=== PATIENT | female | born 1965 ===

== ENCOUNTER 2016-12-15 12:53 | Emergency (ER) | payer MEDICAID ==
[2016-12-15 12:59] VITALS: TEMP 99; O2SAT 98
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
[2016-12-15 15:34] VITALS: BP 148/83; PULSE 88; RESP 16
--- NOTE | 2016-12-16 07:37 | CARD ---
APPROVED REPORT EKG Measurement Heart [id number] <Conclusion> Normal sinus rhythm Possible Left atrial enlargement Left axis deviation Abnormal ECG
== END 2016-12-15 15:28 | disposition home or self-care (01) ==
LOC: H.ER 12:53
DX: F43.20 Adjustment disorder, unspecified (principal); E11.9 Type 2 diabetes mellitus without complications; E78.00 Pure hypercholesterolemia, unspecified; I10 Essential (primary) hypertension

== ENCOUNTER 2017-06-16 20:00 | Emergency (ER) | payer MEDICAID ==
[2017-06-16 20:22] VITALS: O2SAT 98
[2017-06-16 21:39] LABS: BASO # 0.1 K/uL (0.0-0.2); BASO % 1.2 % (0.0-2.0); EOS # 0.4 K/uL (0.0-0.7); EOS % 3.6 % (0.0-4.0); LYMPH # 2.5 K/uL (1.0-4.3); LYMPH % 22.9 % (20.0-40.0); MEAN CELL VOLUME 89.6 fl (81.0-99.0); MEAN CORPUSCULAR HGB CONC 33.5 g/dL (33.0-37.0); MEAN PLATELET VOLUME 9.2 fl (7.2-11.7); MONO % 8.7 % (0.0-10.0); NEUT % 63.6 % (50.0-75.0); NRBC % 0.1 % (0.0-0.0); RBC 4.33 Mil/uL (3.80-5.20); RED CELL DISTRIBUTION WIDTH 13.1 % (11.5-14.5); WHITE BLOOD COUNT 10.9 K/uL (4.8-10.8)
[2017-06-16 21:55] LABS: PARTIAL THROMBOPLASTIN TIME 30.5 Seconds (25.6-37.1); PROTHROMBIN TIME 10.6 Seconds (9.8-13.1)
[2017-06-16 22:03] LABS: BLOOD UREA NITROGEN 18 mg/dl (7-17); CALCIUM 10.2 mg/dL (8.4-10.2); GFR AFRICAN-AMERICAN > 60; GFR NON-AFRICAN AMERICAN > 60
--- NOTE | 2017-06-16 23:36 | RAD ---
EXAM: XR Left Shoulder Complete, 2 or More Views EXAM DATE/TIME: 06/16/2017 9:20 PM CLINICAL HISTORY: 52 years old, female; Signs and symptoms; Other: Pain; Additional info: Shoulder pain w/ movement TECHNIQUE: Two or more views of the left shoulder. COMPARISON: No relevant prior studies available. FINDINGS: There is a curvilinear calcific density along the superior lateral aspect of the left humeral head likely representing tendinitis secondary to calcium deposition along the rotator cuff / supraspinatus tendon. There increased density between the humeral head and acromioclavicular joint possible effusion. No fractures. No osseous lesions. IMPRESSION: Findings supportive of calcific tendinitis.
--- NOTE | 2017-06-16 23:38 | ED PDOC ---
Upper Extremity Pain/Injury Time Seen by Provider: 06/16/17 20:59 Chief Complaint (Nursing): Chest Pain Chief Complaint (Provider): Left Shoulder Pain History Per: Patient History/Exam Limitations: no limitations Onset/Duration Of Symptoms: Days (for a few days), Worse Since (worse today) Current Symptoms Are (Timing): Still Present Additional Complaint(s): 52 year old female presents to ED with complaints of left shoulder pain x few days and has a past medical history of DM and HTN. Notes that she has experienced this pain before but notes that it worsened today. Confirms that she normally takes a muscle relaxant and Naprozen but notes neither provided relief. (+) pain radiation to chest and back. (-) SOB. PCP: Shaik Burroughs Past Medical History Reviewed: Historical Data, Nursing Documentation, Vital Signs Vital Signs: Last Vital Signs Temp 98.8 F 06/16/17 20:19 Pulse 103 H 06/16/17 20:19 Resp 17 06/16/17 20:19 BP 139/68 06/16/17 20:19 Pulse Ox 98 06/16/17 20:19 - Medical History PMH: Diabetes (Type II), HTN, Hypercholesterolemia - Surgical History Surgical History: Appendectomy, - Family History Family History: States: Unknown Family Hx - Living Arrangements Living Arrangements: With Family - Social History Drugs: Denies - Home Medications Home Medications: Ambulatory Orders Medication Instructions Recorded Cyclobenzaprine [Cyclobenzaprine 10 mg PO BID PRN #10 tab 03/17/15 HCl] Cyclobenzaprine [Cyclobenzaprine 10 mg PO BID #15 tab 06/17/17 HCl] Ketorolac Tromethamine [Toradol] 10 mg PO BID #30 tab 06/17/17 Lidocaine 1 each TP DAILY #10 adh..patch 06/17/17 - Allergies Allergies/Adverse Reactions: Allergies Allergy/AdvReac Type Severity Reaction Status Date / Time No Known Allergies Allergy Verified 06/16/17 20:22 Review of Systems ROS Statement: Except As Marked, All Systems Reviewed And Found Negative Cardiovascular: Positive for: Chest Pain (pain radiates to chest) Respiratory: Negative for: Shortness of Breath Musculoskeletal: Positive for: Shoulder Pain (left), Back Pain (pain radiates to back) Physical Exam - Reviewed Nursing Documentation Reviewed: Yes Vital Signs Reviewed: Yes - Physical Exam Appears: Positive for: Non-toxic, No Acute Distress Skin: Positive for: Normal Color, Warm, Dry Eye Exam: Positive for: Normal appearance Neck: Positive for: Normal, Painless ROM, Supple Cardiovascular/Chest: Positive for: Regular Rate, Rhythm. Negative for: Murmur Respiratory: Positive for: Normal Breath Sounds. Negative for: Respiratory Distress Gastrointestinal/Abdominal: Positive for: Normal Exam, Soft. Negative for: Tenderness Extremity: Positive for: Tenderness (TTP of left shoulder), Other (distally neurovascularly intact). Negative for: Normal ROM (limited ROM of left shoulder secondary to pain) Neurologic/Psych: Positive for: Alert, Oriented. Negative for: Motor/Sensory Deficits - Laboratory Results Result Diagrams: 06/16/17 21:24 06/16/17 21:24 - ECG O2 Sat by Pulse Oximetry: 98 (RA) Pulse Ox Interpretation: Normal Medical Decision Making Medical Decision Makin Initial impression arthritic changes v nerve impingement syndrome Initial plan: * EKG * Labs * Trop I * PTT/PT * CXR * Flexeril 10mg PO * Toradol 30mg IVP * XR SHOULDER LEFT * Re-eval 2309 * Ultram 50mg PO * Re-eval 2335 XR FINDINGS There is a curvilinear calcific density along the superior lateral aspect of the left humeral head likely representing tendinitis secondary to calcium deposition along the rotator cuff / supraspinatus tendon. There increased density between the humeral head and acromioclavicular joint possible effusion. No fractures. No osseous lesions. IMPRESSION: Findings supportive of calcific tendinitis. 2355 * Maalox Plus 30mL PO * Pepcid 20mg PO * Re-eval 0043 Upon re-evaluation patient notes improvement in symptoms and is stable for discharge home. Condition: improved. Scribe Attestation: Documented by Candace Eisenberg acting as a scribe for Jourdan Rios MD. Scribe Attestation: All medical record entries made by the Scribe were at my direction and personally dictated by me. I have reviewed the chart and agree that the record accurately reflects my personal performance of the history, physical exam, medical decision making, and the department course for this patient. I have also personally directed, reviewed, and agree with the discharge instructions and disposition. Disposition - Clinical Impression Clinical Impression: Calcific tendinitis - Disposition Referrals: Shaik Burroughs MD [Primary Care Provider] - Kinjal Farr MD [Staff Provider] - Disposition: Routine/Home Disposition Time: 00:43 Condition: STABLE Prescriptions: Cyclobenzaprine [Cyclobenzaprine HCl] 10 mg PO BID #15 tab Ketorolac Tromethamine [Toradol] 10 mg PO BID #30 tab Lidocaine 1 each TP DAILY #10 adh..patch Instructions: Calcific Tendinitis (ED) Forms: [employer] (Italian) Print Language: AMHARIC
[2017-06-16] MEDS ORDERED: Alum-Mag Hydrox-Simethicone Susp (30 mL) PO ONE (23:54)
[2017-06-16] MEDS ORDERED: Alum-Mag Hydrox-Simethicone Susp (30 mL) ONE (23:56)
[2017-06-17 05:56] VITALS: BP 122/78; PULSE 86; RESP 16; TEMP 98.9
--- NOTE | 2017-06-17 10:10 | RAD ---
PROCEDURE: CHEST RADIOGRAPH, 1 VIEW HISTORY: hx of breast CA, CP COMPARISON: Chest radiograph dated 05/29/2008 FINDINGS: LUNGS: Clear. PLEURA: No pneumothorax or pleural fluid seen. CARDIOVASCULAR: Normal. OSSEOUS STRUCTURES: Unchanged. VISUALIZED UPPER ABDOMEN: Normal. OTHER FINDINGS: None. IMPRESSION: No active disease.
--- NOTE | 2017-06-17 11:33 | CARD ---
APPROVED REPORT EKG Measurement Heart [id number] <Conclusion> Sinus tachycardia Left axis deviation Inferior infarct, age undetermined Abnormal ECG
== END 2017-06-17 01:05 | disposition home or self-care (01) ==
LOC: H.ER 20:00
DX: M75.30 Calcific tendinitis of unspecified shoulder (principal); E11.9 Type 2 diabetes mellitus without complications; E78.00 Pure hypercholesterolemia, unspecified; I10 Essential (primary) hypertension; Z85.3 Personal history of malignant neoplasm of breast; R07.89 Other chest pain
CPT/HCPCS: 71045; 73030; 80048; 84484; 85025; 85610; 85730; 93005; 96374; 99283; J1885

== ENCOUNTER 2018-08-09 13:22 | Emergency (ER) | payer MEDICAID ==
[2018-08-09 13:37] VITALS: RESP 18
--- NOTE | 2018-08-09 14:36 | ED PDOC ---
HPI: General Adult Time Seen by Provider: 08/09/18 13:38 Chief Complaint (Nursing): Upper Extremity Problem/Injury Chief Complaint (Provider): Upper Extremity Problem/Injury History Per: Patient, Integration Consultant (Samra Strickland # [id number]) History/Exam Limitations: no limitations Onset/Duration Of Symptoms: Days (x 2 months), Worse Since (x5 days) Current Symptoms Are (Timing): Still Present Additional Complaint(s): Patient is a 53 y/o female with no a PMHx of diabetes, HTN, and hypercholesterolemia who presents to the ED for evaluation of constant right- sided body pain. Patient states the pain first began on her right hip two months ago. For the past five days her pain has worsened and extended to her neck, right shoulder, the right side of her back, and down her right leg pain. Patient claims her pain is exacerbated by moving and walking. Patient was prescribed Flexeril by her PCP two months ago which she took the first time last night with mild relief. She also notes her PMD prescribed her Meloxicam which she hasnt taken. She has also been taking medication she bought from [place] with minimal relief. Patient reports the only activity she does is cleaning her house, which involves repetitive movements of the right arm. She denies fever, chill, urinary or bowel incontinence, numbness or tingling, hematuria, saddle anesthesia, h/o malignancy or IVDA PCP: Dr. Shaik Burroughs Past Medical History Reviewed: Historical Data, Nursing Documentation, Vital Signs Vital Signs: Last Vital Signs Temp 98.6 F 08/09/18 13:34 Pulse 87 08/09/18 13:34 Resp 18 08/09/18 13:34 BP 143/70 08/09/18 13:34 Pulse Ox 98 08/09/18 13:34 - Medical History PMH: Diabetes (Type II), HTN, Hypercholesterolemia - Surgical History Surgical History: Appendectomy, - Family History Family History: States: Unknown Family Hx - Home Medications Home Medications: Ambulatory Orders Medication Instructions Recorded Cyclobenzaprine [Cyclobenzaprine 10 mg PO BID PRN #10 tab 03/17/15 HCl] Cyclobenzaprine [Cyclobenzaprine 10 mg PO BID #15 tab 06/17/17 HCl] Ketorolac Tromethamine [Toradol] 10 mg PO BID #30 tab 06/17/17 Lidocaine 1 each TP DAILY #10 adh..patch 06/17/17 traMADol [Ultram] 50 mg PO TID PRN #12 tab 08/09/18 - Allergies Allergies/Adverse Reactions: Allergies Allergy/AdvReac Type Severity Reaction Status Date / Time No Known Allergies Allergy Verified 06/16/17 20:22 Review of Systems ROS Statement: Except As Marked, All Systems Reviewed And Found Negative Constitutional: Negative for: Fever, Chills Genitourinary Female: Negative for: Dysuria, Frequency, Incontinence, Hematuria Musculoskeletal: Positive for: Neck Pain, Shoulder Pain (right), Back Pain (right), Leg Pain (right), Other (right hip pain) Neurological: Positive for: Numbness (right leg) Physical Exam - Reviewed Nursing Documentation Reviewed: Yes Vital Signs Reviewed: Yes - Physical Exam Comments: GENERAL APPEARANCE: Patient is awake, alert, oriented x 3, in mild obvious discomfort, obese SKIN: Warm, dry; (-) cyanosis. CHEST AND RESPIRATORY: (-) chest wall tenderness. Lungs: (-) rales, (-) rhonchi, (-) wheezes; breath sounds equal bilaterally. HEART AND CARDIOVASCULAR: Regular rate and rhythm. (-) irregularity; (-) murmur, (-) gallop. LUNGS: Clear to auscultation bilaterally. NECK: C6-C7 mild midline tenderness and moderate right paraspinal tenderness int o right trapezius muscle, (+)FROM though movement makes it worse (- )lymphadenopathy (-) crepitus (-) step off (-) menigismus BACK: no midline tenderness, (+) FROM, Mild right gluteus yohan tenderness (+) R straight leg raise EXTREMITY: pulses +2, capillary refill <2sec, NVI x4, RUE: Diffuse tenderness to right shoulder; Pain on flexion and abduction of right shoulder. no swelling or deformity RLE: (+) mild tenderness to lateral and posterior hip (+) FROM, no swelling or deformities, (-)saddle anesthesia NEURO AND PSYCH: Mental status as above. pcb design engineer 2-12 intact, normal steady gait, strength 5/5 x4, - ECG O2 Sat by Pulse Oximetry: 98 (RA) Pulse Ox Interpretation: Normal Medical Decision Making Medical Decision Making: Time: 1357 Plan: Cervical Spine 4 Views [Rad] Decadron 10 mg IM Toradol 30 mg IM Valium 5 mg PO HIP Min 4V w/ Pelvis RT [Rad] Shoulder Right [Rad] Time: 1517 Cervical Spine FINDINGS: BONES: Cervical spine straightening noted.. No fracture. Dens Intact. Anterior spondylosis most notable cc 4. Anterior intervertebral disc margin ca lcification ossification C6-7 level. DISC SPACES: Fairly well maintained. SOFT TISSUES: Normal. No prevertebral soft tissue swelling. OTHER FINDINGS: Diffuse apophyseal joint hypertrophic arthrosis from C3-4 through including C6- 7. IMPRESSION: No fracture or subluxation. Cervical spine straightening compatible with muscle spasm and/or positioning. Diffuse apophyseal joint hypertrophic arthrosis. Cervical spondylosis. Time: 1521 Right Shoulder FINDINGS: BONES: No fracture Apparent benign bone island bordering the tuberosities. JOINTS: . Glenohumeral and acromioclavicular trace arthrosis SOFT TISSUES: Normal. OTHER FINDINGS: None. IMPRESSION: No fracture or lytic lesion. Trace right shoulder arthrosis. Other findings as above. Time: 1600 Hip FINDINGS: There are no osseous abnormalities to suggest fracture. The pelvic ring is intact. Preserved femoral-acetabular relationship. Negative study for protrusio, subluxation or dislocation. Degenerative changes: Mild and symmetrical. IMPRESSION: No significant or acute findings to account for/ related to the clinical presentation. Time: 1620 Samra Strickland # [id number] Patient informed that she has arthritis in her neck, shoulder, and hip as well as muscle spasms in her neck. Patient advised to no longer take Meloxicam and the other medication she [place] been [place] from [place]. Patient will not be given Naproxen because she states it triggers her gastritis. Patient will be given a new prescription for Tramadol which she was last prescribed on 02/02/2018. Patient instructed to alternate between Flexeril and Tramadol for relief of symptoms. Patient told to followup with an orthopedist. [facility] Rx search shows only tramadol Rx 02/02/2018 for the last year in [place], [place] Discussed results, diagnosis, treatment, return precautions and f/u with pt who is understanidng, in agreement and stable for dc (translation used as above) Scribe Attestation: Documented by Terence Johnson, acting as a scribe for Bear Bowers PA-C Provider Scribe Attestation: All medical record entries made by the Scribe were at my direction and personally dictated by me. I have reviewed the chart and agree that the record accurately reflects my personal performance of the history, physical exam, medical decision making, and the department course for this patient. I have also personally directed, reviewed, and agree with the discharge instructions and disposition. Disposition - Clinical Impression Clinical Impression: Muscle spasms of neck, Osteoarthritis, Low back pain with right-sided sciatica - Patient ED Disposition Is Patient to be Admitted: No Counseled Patient/Family Regarding: Studies Performed, Diagnosis, Need For Followup, Rx Given - Disposition Referrals: [facility] [Outside] Matthieu Jean Baptiste III, MD [Staff Provider] - Disposition: Routine/Home Disposition Time: 16:30 Condition: STABLE Additional Instructions: [place] Tramadol sherita se lo recetaron hoy. Alternativa de tramadol con flexeril. No conduzca ni enrique alcohol cuando tome cualquiera de los dos medicamentos. Use almohadillas trmicas y duchas de [place] para calmar los msculos. Descanse, evite levantar objetos pesados ??o realizar actividades extenuantes miley radha semana. Moses un seguimiento con un ortopedista lo antes posible. Dagoberto por dejarnos cuidar de ti hoy. Recibi tratamiento para artritis, citica y espasmos musculares. La atencin mdica de emergencia que recibi hoy se dirigi a ozzy sntomas agudos. Si le recetaron algn medicamento, llnelo y tmelo segn las indicaciones. Los sntomas pueden tardar varios west en resolverse. Regrese al Departamento de Emergencias si ozzy sntomas empeoran, no mejoran o si tiene otros problemas. Comunquese con villalobos mdico dentro de 2 west para radha nueva evaluacin y moses un seguimiento o llame a salome de los mdicos / clnicas a los que ram sido referido y que figuran en el formulario de Informacin de visita al paciente que se incluye en villalobos paquete de rashel. Lleve todos los documentos que le entregaron al momento del rashel junto con todos los medicamentos que est tomando para villalobos visita de seguimiento. Nuestro tratamiento no puede reemplazar la atencin mdica continua por parte de un proveedor de atencin primaria (PCP) fuera del departamento de emergencias. Prescriptions: traMADol [Ultram] 50 mg PO TID PRN #12 tab PRN Reason: Pain, Severe (8-10) Instructions: Sciatica, Osteoarthritis, Muscle Spasms (DC) Forms: [employer] Connect (Estonian) Print Language: ETHIOPIAN - POA Present On Arrival: None
--- NOTE | 2018-08-09 15:20 | RAD ---
Date of service: 08/09/2018 PROCEDURE: Cervical Spine Radiographs. HISTORY: Pain. COMPARISON: None available. TECHNIQUE: 3 views obtained. FINDINGS: BONES: Cervical spine straightening noted.. No fracture. Dens Intact. Anterior spondylosis most notable cc 4. Anterior intervertebral disc margin calcification ossification C6-7 level. DISC SPACES: Fairly well maintained. SOFT TISSUES: Normal. No prevertebral soft tissue swelling. OTHER FINDINGS: Diffuse apophyseal joint hypertrophic arthrosis from C3-4 through including C6-7. IMPRESSION: No fracture or subluxation. Cervical spine straightening compatible with muscle spasm and/or positioning. Diffuse apophyseal joint hypertrophic arthrosis. Cervical spondylosis.
--- NOTE | 2018-08-09 15:24 | RAD ---
Date of service: 08/09/2018 PROCEDURE: Radiographs of the Right Shoulder HISTORY: pain COMPARISON: No prior. TECHNIQUE: 3 views obtained. FINDINGS: BONES: No fracture Apparent benign bone island bordering the tuberosities. JOINTS: . Glenohumeral and acromioclavicular trace arthrosis SOFT TISSUES: Normal. OTHER FINDINGS: None. IMPRESSION: No fracture or lytic lesion. Trace right shoulder arthrosis. Other findings as above.
--- NOTE | 2018-08-09 15:57 | RAD ---
Date of service: 08/09/2018 PROCEDURE: Pelvis and right hip HISTORY: Pain. No history of recent/ related trauma provided. COMPARISON: None TECHNIQUE: Standard protocol for this study/examination. FINDINGS: There are no osseous abnormalities to suggest fracture. The pelvic ring is intact. Preserved femoral-acetabular relationship. Negative study for protrusio, subluxation or dislocation. Degenerative changes: Mild and symmetrical. IMPRESSION: No significant or acute findings to account for/ related to the clinical presentation.
[2018-08-09 16:54] VITALS: BP 125/68; PULSE 83; TEMP 98.5
[2018-08-09 19:46] VITALS: O2SAT 98
== END 2018-08-09 16:52 | disposition home or self-care (01) ==
LOC: H.ER 13:22
DX: M62.838 Other muscle spasm (principal); M19.90 Unspecified osteoarthritis, unspecified site; M54.41 Lumbago with sciatica, right side; E11.9 Type 2 diabetes mellitus without complications; E78.00 Pure hypercholesterolemia, unspecified; I10 Essential (primary) hypertension
CPT/HCPCS: 72050; 73030; 73503; 96372; 99282; J1100; J1885

== ENCOUNTER 2018-08-16 10:19 | Emergency (ER) | payer MEDICAID ==
[2018-08-16 10:43] VITALS: BMI 34.2
--- NOTE | 2018-08-16 12:11 | ED PDOC ---
Upper Extremity Pain/Injury Time Seen by Provider: 08/16/18 10:46 Chief Complaint (Nursing): Upper Extremity Problem/Injury Chief Complaint (Provider): Right arm pain History Per: Patient, Family History/Exam Limitations: no limitations Additional Complaint(s): 53 y/o F with HTN, HL, DM who presents with Right shoulder pain. Patient states that she was seen in ED on 08/09/18 for the same pain at which time she was given Decadron IM, Toradol and Valium with improvement in pain x 2 days. She was referred to pain specialist, whom she saw yesterday and was given an injection into her shoulder. Her pain has worsened since the injection yesterday. She called pain specialist this morning who advised to go to ED for injection as joint injection can take up to 3 - 4 days to take full effect. She has been unable to sleep and cannot raise her arm, which is worse than last week. She is having some numbness and tingling in her Right arm. Denies fever, chills, night sweats. She took Tramadol this morning with no improvement in pain. Past Medical History Reviewed: Historical Data, Nursing Documentation, Vital Signs Vital Signs: Last Vital Signs Temp 98.7 F 08/16/18 10:42 Pulse 104 H 08/16/18 10:42 Resp 19 08/16/18 10:42 BP 148/83 08/16/18 10:42 Pulse Ox 96 08/16/18 10:42 - Medical History PMH: Diabetes (Type II), Gastritis, HTN, Hypercholesterolemia - Surgical History Surgical History: Appendectomy, - Family History Family History: States: Unknown Family Hx - Home Medications Home Medications: Ambulatory Orders Medication Instructions Recorded Cyclobenzaprine [Cyclobenzaprine 10 mg PO BID PRN #10 tab 03/17/15 HCl] Cyclobenzaprine [Cyclobenzaprine 10 mg PO BID #15 tab 06/17/17 HCl] Ketorolac Tromethamine [Toradol] 10 mg PO BID #30 tab 06/17/17 Lidocaine 1 each TP DAILY #10 adh..patch 06/17/17 traMADol [Ultram] 50 mg PO TID PRN #12 tab 08/09/18 Cyclobenzaprine [Cyclobenzaprine 10 mg PO Q8 PRN 5 Days tab 08/16/18 HCl] Ibuprofen [Motrin Tab] 600 mg PO Q6 PRN 7 Days tab 08/16/18 Polyethylene Glycol 3350 [Miralax] 17 gm PO DAILY 7 Days ml 08/16/18 - Allergies Allergies/Adverse Reactions: Allergies Allergy/AdvReac Type Severity Reaction Status Date / Time No Known Allergies Allergy Verified 06/16/17 20:22 Review of Systems Constitutional: Negative for: Fever, Chills, Sweats Musculoskeletal: Positive for: Shoulder Pain Physical Exam - Reviewed Nursing Documentation Reviewed: Yes Vital Signs Reviewed: Yes - Physical Exam Appears: Positive for: Uncomfortable Neck: Positive for: Normal, Painless ROM Extremity: Positive for: Capillary Refill (< 2 sec), Other (pain on palpation of Right shoulder ). Negative for: Normal ROM (decreased ROM with flexion and abduction of Right shoulder, normal ROM with flexion/extension of Right elbow), Deformity, Swelling Neurological/Psych: Positive for: Awake, Alert, Oriented - ECG O2 Sat by Pulse Oximetry: 96 Medical Decision Making Medical Decision Making: Toradol 30mg IM x 1 Flexeril 10mg PO x 1 Re-evaluation Re-evaluated: pt with significant improvement in pain and able to eat with her Right hand now although remains with limited ROM. Stable for d/c home with return instructions provided. Disposition - Clinical Impression Clinical Impression: Shoulder pain - Patient ED Disposition Is Patient to be Admitted: No Counseled Patient/Family Regarding: Diagnosis, Need For Followup, Rx Given - Disposition Referrals: Shaik Burroughs MD [Family Provider] - Disposition: Routine/Home Disposition Time: 14:06 Condition: STABLE Additional Instructions: Follow up with your primary care doctor or pain specialist within the next week for further pain management. Take Cyclobenzaprine (muscle relaxer) for muscle spasm but avoid driving or operating heavy machinery while taking it as it may make you drowsy. Take Ibuprofen with food for pain. Continue Tramadol as needed for severe pain. Use Miralax for constipation. Return to ER for worsening pain. Prescriptions: Cyclobenzaprine [Cyclobenzaprine HCl] 10 mg PO Q8 PRN 5 Days tab PRN Reason: Muscle Spasm Ibuprofen [Motrin Tab] 600 mg PO Q6 PRN 7 Days tab PRN Reason: Pain, Moderate (4-7) Polyethylene Glycol 3350 [Miralax] 17 gm PO DAILY 7 Days ml Forms: [employer] (Turkish) Print Language: ITALIAN
[2018-08-16 14:08] VITALS: BP 136/80; PULSE 90; RESP 16; TEMP 98.5
[2018-08-16 21:05] VITALS: O2SAT 96
== END 2018-08-16 14:06 | disposition home or self-care (01) ==
LOC: H.ER 10:19
DX: M25.511 Pain in right shoulder (principal); E11.9 Type 2 diabetes mellitus without complications; E78.00 Pure hypercholesterolemia, unspecified; I10 Essential (primary) hypertension
CPT/HCPCS: 96372; 99283; J1885